=== PATIENT | female | born 1950 | race Caucasian/White ===

== ENCOUNTER 2016-12-14 18:47 | Emergency (ER) | payer MEDICARE, BC ==
--- NOTE | 2016-12-15 13:29 | ER ---
ADMIT: 12/14/2016 RM/LOC: ER [facility] MR#: [id number] [id number] NINFA CLEMENTEETTE Thomas [address] [place] [address] Emergency Room Report SEX: F AGE: 66 : 1950 DATE: 12/14/2016 HISTORY OF PRESENT ILLNESS: The patient is a 66-year-old female with past medical history of hypothyroidism and hypertension, came here to the ER with chief complaint of right knee pain, the patient states yesterday while she was walking and going over the curb, she lifted right leg, not enough, and tripped over it and hit the right knee to the ground, the patient denies any twisting or trauma to other parts of the body or head trauma or loss of consciousness. Since then, the patient was limping on the right knee and right lower extremity. The patient denies pain in the anterior right knee and also lateral right knee in the place of the ecchymosis, pain increases with palpation and walking over the right lower extremity. PHYSICAL EXAMINATION: HEAD AND NECK. There are no signs of trauma. CHEST: Clear bilaterally. There is no crepitation. HEART: Normal heart sounds. ABDOMEN: Soft. PELVIC: Stable. EXTREMITIES: Range of motion of all extremities are normal except for right knee, which is limited by the pain. There is some mild ballottement, effusion on the right knee joint. Ligamentous exam were grossly stable, there is ecchymosis on the anterior and lateral right knee, the patient had normal neurovascular exam, and pressing over the patella did not increase the pain significantly. X-ray did not show any fracture or dislocation or subluxation. The patient was discharged home with a knee immobilizer, advised to use Tylenol for pain control and follow up with the primary doctor as needed. The patient already has a walker, cane ambulator at home. The patient is stable to be discharged to home. DIAGNOSIS: Right knee contusion, ecchymosis. Yariel Vargas MD/ parveen JOB #: [id number] CC: Sam Del Valle MD, Attending Physician Owen Meade MD, Family Physician
== END 2016-12-14 20:14 | disposition home or self-care (01) ==
LOC: ER 18:47
DX: S80.01XA Contusion of right knee, initial encounter (principal); E03.9 Hypothyroidism, unspecified; I10 Essential (primary) hypertension; Z88.0 Allergy status to penicillin; Z88.8 Allergy status to other drugs, medicaments and biological substances; Z79.899 Other long term (current) drug therapy; W01.0XXA Fall on same level from slipping, tripping and stumbling without subsequent striking against object, initial encounter